=== PATIENT | male | born 1995 | race Caucasian/White ===

== ENCOUNTER 2020-09-18 19:07 | Inpatient (IN) ==
[2020-09-18] MEDS ORDERED: 0.9 % Sodium Chloride 1,000 ML IVC ONE ×2 (19:20→20:59)
[2020-09-18 19:47] LABS: Bilirubin,Urine Negative (Negative); Blood,Urine Negative (Negative); Clarity,Urine Clear (Clear); Color,Urine Yellow (Yellow); Glucose,Urine (UA) Normal (Normal); Ketones,Urine Negative (Negative); Leukocyte Esterase,Urine Negative (Negative); Mucus,Urine Few per lpf (None-Few); Nitrite,Urine Negative (Negative); PH,Urine 8.5 pH Units (5.0-8.0); Protein,Urine 100 mg/dL (Neg-Trace); RBC,Urine 0-3 per hpf (0-3); Specific Gravity,Urine 1.027 (1.010-1.025); WBC,Urine 0-3 per hpf (0-3)
[2020-09-18 19:53] LABS: Prothrombin Time 11.6 Seconds (9.4-12.1)
[2020-09-18 19:55] LABS: Basophils % 0.4 %; Eosinophils # 0.2 K/mcL (0.0-0.6); Eosinophils % 2.2 %; Hematocrit 54.4 % (37.5-50.1); Hemoglobin 18.4 g/dL (12.9-16.9); Immature Granulocytes % 0.3 % (0-4); Lymphocytes # 1.3 K/mcL (0.6-4.6); Lymphocytes % 13.1 %; Mean Corpuscular HGB Conc 33.8 g/dL (31.6-35.5); Mean Corpuscular Volume 88.7 fL (83.0-100.0); Mean Platelet Volume 12.5 fL (9.4-12.4); Monocytes # 0.6 K/mcL (0.0-1.3); Monocytes % 5.9 %; Neutrophils # 7.8 K/mcL (1.6-8.9); Platelet Count 199 K/mcL (140-400); Red Blood Count 6.13 M/mcL (4.19-5.50); Red Cell Distribution Width 12.1 % (11.5-14.5); Segmented Neutrophils % 78.1 %
[2020-09-18 19:55] LABS: Amphetamine Screen,Urine Negative ng/mL (Cutoff=1000); Barbiturate Screen,Urine Negative ng/mL (Cutoff=200); Benzodiazepines Screen,Urine Negative ng/mL (Cutoff=200); Cannabinoid Screen,Urine Negative ng/mL (Cutoff = 50); Cocaine Screen,Urine Negative ng/mL (Cutoff= 300); Opiate Screen,Urine Negative ng/mL (Cutoff=300); Phencyclidine Screen,Urine Negative ng/mL (Cutoff=25)
[2020-09-18 20:08] LABS: Acetaminophen < 10 mcg/mL (10-20); Alanine Aminotransferase 35 Units/L (7-52); Albumin/Globulin Ratio 1.7 (1.1-2.2); Alkaline Phosphatase 74 Units/L (34-104); Aspartate Amino Transferase 22 Units/L (13-39); BUN/Creatinine Ratio 10 (6-26); Bilirubin,Direct 0.1 mg/dL (0.0-0.2); Bilirubin,Indirect 0.4 mg/dL (0.0-1.0); Bilirubin,Total 0.5 mg/dL (0.3-1.0); Blood Urea Nitrogen 10 mg/dL (6-20); Calcium 10.1 mg/dL (8.6-10.3); Carbon Dioxide 26 mEq/L (23-29); Chloride 100 mEq/L (98-107); Creatine Kinase 109 Units/L (30-223); Ethanol < 10 mg/dL (Less than 10); Glucose 94 mg/dL (70-105); Lipase 22 Units/L (11-82); Magnesium 1.9 mg/dL (1.6-2.6); Osmolality,Calculated 279 (280-300); Salicylate < 2.5 mg/dL (15.0-30.0); Sodium 135 mEq/L (136-145); Troponin I < 0.03 ng/mL (< 0.04); eGFR For African Americans > 60 (> 60); eGFR For Non-African Americans > 60 (> 60)
[2020-09-18] MEDS ORDERED: Metoclopramide 10 MG/2 ML VIAL IVP ONE (20:59)
[2020-09-18] MEDS ORDERED: cefTRIAXone 2,000 MG in Water for inj. (sterile) 20 ML IVP ONE (22:16)
[2020-09-18 23:11] LABS: Appearance,CSF Clear (Clear)
[2020-09-18 23:12] LABS: Red Blood Cell,CSF < 2000 RBC/mcL
[2020-09-18 23:13] LABS: Glucose,CSF 63 mg/dL (40-70); Total Protein,CSF 54 mg/dL (15-45)
[2020-09-18 23:15] LABS: VBG HCO3 27 mEq/L (21-27); VBG PCO2 56 mmHg (41-51); VBG PH 7.29 pH Units (7.32-7.42); VBG PO2 62 mmHg (25-50)
[2020-09-19 01:16] LABS: Adenovirus Not Detected (Not Detect); Bordetella Pertussis Not Detected (Not Detect); Chlamydophila pneumoniae Not Detected (Not Detect); Coronavirus 229E Not Detected (Not Detect); Coronavirus HKU1 Not Detected (Not Detect); Coronavirus NL63 Not Detected (Not Detect); Coronavirus OC43 Not Detected (Not Detect); Human Metapneumovirus Not Detected (Not Detect); Human Rhinovirus/Enterovirus Not Detected (Not Detect); Influenza A Subtype 2009 H1 Not Detected (Not Detect); Influenza B Not Detected (Not Detect); Mycoplasma pneumoniae Not Detected (Not Detect); Parainfluenza Virus 1 Not Detected (Not Detect); Parainfluenza Virus 2 Not Detected (Not Detect); Parainfluenza Virus 3 Not Detected (Not Detect); Parainfluenza Virus 4 Not Detected (Not Detect); Respiratory Syncytial Virus Not Detected (Not Detect); SARS-CoV-2 Not Detected (Not Detect)
[2020-09-19] MEDS ORDERED: Naloxone 0.4 MG/ML INJ IVP PRN (01:27)
[2020-09-19] MEDS ORDERED: Ondansetron ODT 4 MG TAB.RAPDIS SL PRN (01:27)
[2020-09-19] MEDS ORDERED: Vancomycin 1,500 MG/265 ML IV.SOLN IVPB ONE (02:01)
[2020-09-19] MEDS: 0.9 % Sodium Chloride 1,000 ML IVC SCH ×2 (02:43→18:18)
[2020-09-19] MEDS: Acetaminophen 325 MG TABLET PO PRN ×2 (02:47→18:23)
[2020-09-19 06:52] LABS: Hematocrit 45.1 % (37.5-50.1); Mean Corpuscular HGB Conc 34.4 g/dL (31.6-35.5); Mean Corpuscular Hemoglobin 30.8 pg (28.0-33.3); Mean Corpuscular Volume 89.7 fL (83.0-100.0); Mean Platelet Volume 12.5 fL (9.4-12.4); Platelet Count 188 K/mcL (140-400); Red Blood Count 5.03 M/mcL (4.19-5.50); White Blood Count 11.9 K/mcL (4.3-11.1)
[2020-09-19 06:59] LABS: Hemoglobin 15.5 g/dL (12.9-16.9)
[2020-09-19 07:13] LABS: BUN/Creatinine Ratio 11 (6-26); Blood Urea Nitrogen 8 mg/dL (6-20); Calcium 8.9 mg/dL (8.6-10.3); Carbon Dioxide 24 mEq/L (23-29); Chloride 106 mEq/L (98-107); Glucose 88 mg/dL (70-105); Magnesium 1.6 mg/dL (1.6-2.6); Osmolality,Calculated 280 (280-300); Phosphorous 3.3 mg/dL (2.7-4.5); Potassium 3.6 mEq/L (3.5-5.1); Sodium 136 mEq/L (136-145); eGFR For African Americans > 60 (> 60); eGFR For Non-African Americans > 60 (> 60)
[2020-09-19] MEDS: cefTRIAXone 1,000 MG in 0.9 % Sodium Chloride Mini Bag 100 ML IVPB SCH (08:22)
[2020-09-19] MEDS ORDERED: Gadolinium Contrast Agent (WT Based) IV PRN (14:16)
[2020-09-20 02:51] LABS: Basophils % 0.4 %; Eosinophils # 0.2 K/mcL (0.0-0.6); Eosinophils % 2.2 %; Immature Granulocytes % 0.3 % (0-4); Lymphocytes # 1.6 K/mcL (0.6-4.6); Mean Corpuscular Hemoglobin 30.9 pg (28.0-33.3); Mean Corpuscular Volume 90.9 fL (83.0-100.0); Mean Platelet Volume 12.1 fL (9.4-12.4); Monocytes # 0.6 K/mcL (0.0-1.3); Monocytes % 8.7 %; Neutrophils # 4.4 K/mcL (1.6-8.9); Platelet Count 177 K/mcL (140-400); Red Blood Count 5.17 M/mcL (4.19-5.50); Segmented Neutrophils % 64.4 %; White Blood Count 6.8 K/mcL (4.3-11.1)
[2020-09-20] MEDS: cefTRIAXone 1,000 MG in 0.9 % Sodium Chloride Mini Bag 100 ML IVPB SCH (07:58)
[2020-09-20] MEDS ORDERED: CefTRIAXone 1,000 MG VIAL ONE (08:00)
[2020-09-20 14:06] LABS: BUN/Creatinine Ratio 12 (6-26); Blood Urea Nitrogen 10 mg/dL (6-20); eGFR For African Americans > 60 (> 60); eGFR For Non-African Americans > 60 (> 60)
[2020-09-20] MEDS: Acetaminophen 325 MG TABLET PO PRN (14:28)
[2020-09-20] MEDS: Acyclovir 700 MG in D5% in Water 100 ML IVPB SCH (17:45)
[2020-09-21] MEDS: Acyclovir 700 MG in D5% in Water 100 ML IVPB SCH ×4 (00:43→23:45)
[2020-09-21 05:46] LABS: Basophils % 0.8 %; Eosinophils # 0.2 K/mcL (0.0-0.6); Eosinophils % 4.5 %; Hematocrit 50.2 % (37.5-50.1); Hemoglobin 16.6 g/dL (12.9-16.9); Immature Granulocytes % 0.2 % (0-4); Lymphocytes % 37.1 %; Mean Corpuscular HGB Conc 33.1 g/dL (31.6-35.5); Mean Corpuscular Hemoglobin 29.6 pg (28.0-33.3); Mean Corpuscular Volume 89.6 fL (83.0-100.0); Mean Platelet Volume 12.4 fL (9.4-12.4); Monocytes # 0.6 K/mcL (0.0-1.3); Monocytes % 10.5 %; Neutrophils # 2.5 K/mcL (1.6-8.9); Platelet Count 191 K/mcL (140-400); Red Cell Distribution Width 11.9 % (11.5-14.5); Segmented Neutrophils % 46.9 %; White Blood Count 5.3 K/mcL (4.3-11.1)
[2020-09-21 06:11] LABS: Alanine Aminotransferase 19 Units/L (7-52); Albumin 4.3 g/dL (3.5-5.7); Albumin/Globulin Ratio 1.7 (1.1-2.2); Alkaline Phosphatase 62 Units/L (34-104); Aspartate Amino Transferase 11 Units/L (13-39); BUN/Creatinine Ratio 13 (6-26); Bilirubin,Total 0.5 mg/dL (0.3-1.0); Blood Urea Nitrogen 12 mg/dL (6-20); Calcium 9.3 mg/dL (8.6-10.3); Carbon Dioxide 29 mEq/L (23-29); Chloride 101 mEq/L (98-107); Globulin 2.6 g/dL (2.4-3.5); Glucose 91 mg/dL (70-105); Osmolality,Calculated 285 (280-300); Sodium 138 mEq/L (136-145); Total Protein 6.9 g/dL (6.4-8.9); eGFR For African Americans > 60 (> 60); eGFR For Non-African Americans > 60 (> 60)
[2020-09-21] MEDS: Acetaminophen 325 MG TABLET PO PRN ×3 (07:23→23:45)
[2020-09-21] MEDS ORDERED: Acetaminophen 325 MG TABLET PO ONE (21:49)
[2020-09-22] MEDS ORDERED: Ibuprofen 800 MG TABLET PO ONE (04:03)
[2020-09-22 05:02] LABS: Basophils % 0.3 %; Eosinophils # 0.1 K/mcL (0.0-0.6); Hematocrit 50.1 % (37.5-50.1); Hemoglobin 17.3 g/dL (12.9-16.9); Immature Granulocytes % 0.1 % (0-4); Lymphocytes # 1.4 K/mcL (0.6-4.6); Lymphocytes % 16.1 %; Mean Corpuscular HGB Conc 34.5 g/dL (31.6-35.5); Mean Corpuscular Hemoglobin 31.1 pg (28.0-33.3); Mean Corpuscular Volume 89.9 fL (83.0-100.0); Mean Platelet Volume 12.2 fL (9.4-12.4); Monocytes % 11.9 %; Neutrophils # 6.1 K/mcL (1.6-8.9); Platelet Count 177 K/mcL (140-400); Red Blood Count 5.57 M/mcL (4.19-5.50); Red Cell Distribution Width 11.9 % (11.5-14.5); Segmented Neutrophils % 70.6 %
[2020-09-22 05:03] LABS: White Blood Count 8.7 K/mcL (4.3-11.1)
[2020-09-22 05:33] LABS: Albumin 4.3 g/dL (3.5-5.7); Albumin/Globulin Ratio 1.5 (1.1-2.2); Bilirubin,Total 0.9 mg/dL (0.3-1.0); Calcium 9.5 mg/dL (8.6-10.3); Globulin 2.9 g/dL (2.4-3.5); Potassium 4.1 mEq/L (3.5-5.1); Total Protein 7.2 g/dL (6.4-8.9)
[2020-09-22] MEDS: Acyclovir 700 MG in D5% in Water 100 ML IVPB SCH ×2 (07:42→19:33)
[2020-09-22] MEDS ORDERED: 0.9 % Sodium Chloride 1,000 ML IVC SCH (10:00)
[2020-09-22] MEDS: 0.9 % Sodium Chloride 1,000 ML IVC SCH ×3 (10:05→23:56)
[2020-09-22] MEDS: Acetaminophen 325 MG TABLET PO PRN ×3 (10:12→22:38)
[2020-09-23 02:13] LABS: Magnesium 1.7 mg/dL (1.6-2.6); Phosphorous 2.8 mg/dL (2.7-4.5)
[2020-09-23 02:14] LABS: Albumin 3.9 g/dL (3.5-5.7); Albumin/Globulin Ratio 1.5 (1.1-2.2); Bilirubin,Total 1.1 mg/dL (0.3-1.0); Calcium 8.7 mg/dL (8.6-10.3); Globulin 2.6 g/dL (2.4-3.5); Potassium 3.6 mEq/L (3.5-5.1); Total Protein 6.5 g/dL (6.4-8.9)
[2020-09-23 02:39] LABS: Basophils % 0.3 %; Eosinophils # 0.2 K/mcL (0.0-0.6); Eosinophils % 2.1 %; Hematocrit 46.7 % (37.5-50.1); Immature Granulocytes % 0.2 % (0-4); Lymphocytes # 1.6 K/mcL (0.6-4.6); Mean Corpuscular HGB Conc 33.4 g/dL (31.6-35.5); Mean Corpuscular Hemoglobin 29.8 pg (28.0-33.3); Mean Corpuscular Volume 89.3 fL (83.0-100.0); Mean Platelet Volume 12.4 fL (9.4-12.4); Monocytes # 0.9 K/mcL (0.0-1.3); Monocytes % 10.6 %; Platelet Count 168 K/mcL (140-400); Red Blood Count 5.23 M/mcL (4.19-5.50); Red Cell Distribution Width 11.9 % (11.5-14.5); Segmented Neutrophils % 68.8 %; White Blood Count 8.7 K/mcL (4.3-11.1)
[2020-09-23 02:43] LABS: Hemoglobin 15.6 g/dL (12.9-16.9)
[2020-09-23] MEDS ORDERED: 0.9 % Sodium Chloride 250 ML IVC ONE (07:42)
[2020-09-23] MEDS ORDERED: Ondansetron 4 MG/2 ML VIAL IVP PRN (07:45)
[2020-09-23] MEDS: 0.9 % Sodium Chloride 1,000 ML IVC SCH ×3 (08:24→20:34)
[2020-09-23] MEDS: Acyclovir 700 MG in D5% in Water 100 ML IVPB SCH (09:24)
[2020-09-23 11:57] LABS: BUN/Creatinine Ratio 7 (6-26); Blood Urea Nitrogen 12 mg/dL (6-20); Calcium 8.8 mg/dL (8.6-10.3); Carbon Dioxide 28 mEq/L (23-29); Chloride 106 mEq/L (98-107); Glucose 96 mg/dL (70-105); Osmolality,Calculated 288 (280-300); Potassium 4.2 mEq/L (3.5-5.1); Sodium 139 mEq/L (136-145); eGFR For African Americans > 60 (> 60); eGFR For Non-African Americans 52 (> 60)
[2020-09-23] MEDS: levETIRAcetam 250 MG TABLET PO SCH (16:46)
[2020-09-24] MEDS: 0.9 % Sodium Chloride 1,000 ML IVC SCH ×2 (00:31→06:20)
[2020-09-24 05:04] LABS: Alanine Aminotransferase 14 Units/L (7-52); Albumin 3.5 g/dL (3.5-5.7); Albumin/Globulin Ratio 1.5 (1.1-2.2); Alkaline Phosphatase 48 Units/L (34-104); Aspartate Amino Transferase 26 Units/L (13-39); BUN/Creatinine Ratio 7 (6-26); Bilirubin,Total 0.7 mg/dL (0.3-1.0); Blood Urea Nitrogen 9 mg/dL (6-20); Calcium 8.5 mg/dL (8.6-10.3); Carbon Dioxide 26 mEq/L (23-29); Chloride 106 mEq/L (98-107); Globulin 2.4 g/dL (2.4-3.5); Glucose 88 mg/dL (70-105); Magnesium 1.7 mg/dL (1.6-2.6); Osmolality,Calculated 286 (280-300); Phosphorous 2.9 mg/dL (2.7-4.5); Potassium 3.7 mEq/L (3.5-5.1); Sodium 139 mEq/L (136-145); Total Protein 5.9 g/dL (6.4-8.9); eGFR For African Americans > 60 (> 60); eGFR For Non-African Americans > 60 (> 60)
[2020-09-24] MEDS: levETIRAcetam 250 MG TABLET PO SCH (05:25)
[2020-09-24 07:13] VITALS: BP 113/75
[2020-09-27 02:45] LABS: HSV Source NOT PROVIDED
== END 2020-09-24 11:24 | disposition home or self-care (01) | DRG 75 ==
LOC: EMEROOARM 19:07 → 3BNU 19:07 → SUATTDRO 09-19 01:22 → 3BNU 09-19 01:36
PROVIDERS: ADMIT Student in an Organized Health Care Education/Training Program; ATTEND Internal Medicine

== ENCOUNTER 2021-02-08 21:29 | Observation (INO) ==
[2021-02-08 22:26] LABS: Bilirubin,Urine Negative (Negative); Blood,Urine Negative (Negative); Clarity,Urine Clear (Clear); Color,Urine Light-Yellow (Yellow); Glucose,Urine (UA) Normal (Normal); Ketones,Urine Negative (Negative); Leukocyte Esterase,Urine Negative (Negative); Nitrite,Urine Negative (Negative); PH,Urine 6.5 pH Units (5.0-8.0); Protein,Urine Negative (Neg-Trace); Specific Gravity,Urine 1.024 (1.010-1.025); Urobilinogen,Urine Normal (Normal)
[2021-02-08 22:32] LABS: Basophils # 0.1 K/mcL (0.0-0.2); Basophils % 0.3 %; Eosinophils # 0.6 K/mcL (0.0-0.6); Eosinophils % 3.4 %; Hematocrit 49.6 % (37.5-50.1); Hemoglobin 16.5 g/dL (12.9-16.9); Immature Granulocytes % 0.4 % (0-4); Lymphocytes # 1.5 K/mcL (0.6-4.6); Mean Corpuscular HGB Conc 33.3 g/dL (31.6-35.5); Mean Corpuscular Hemoglobin 30.7 pg (28.0-33.3); Mean Corpuscular Volume 92.4 fL (83.0-100.0); Mean Platelet Volume 12.7 fL (9.4-12.4); Monocytes # 1.1 K/mcL (0.0-1.3); Monocytes % 6.5 %; Neutrophils # 13.6 K/mcL (1.6-8.9); Platelet Count 195 K/mcL (140-400); Red Blood Count 5.37 M/mcL (4.19-5.50); Segmented Neutrophils % 80.4 %; White Blood Count 16.9 K/mcL (4.3-11.1)
[2021-02-08 22:54] LABS: Alanine Aminotransferase 30 Units/L (7-52); Albumin 4.7 g/dL (3.5-5.7); Albumin/Globulin Ratio 1.9 (1.1-2.2); Alkaline Phosphatase 64 Units/L (34-104); Aspartate Amino Transferase 21 Units/L (13-39); BUN/Creatinine Ratio 17 (6-26); Bilirubin,Direct 0.1 mg/dL (0.0-0.2); Bilirubin,Indirect 0.2 mg/dL (0.0-1.0); Bilirubin,Total 0.3 mg/dL (0.3-1.0); Blood Urea Nitrogen 18 mg/dL (6-20); Calcium 9.6 mg/dL (8.6-10.3); Carbon Dioxide 31 mEq/L (23-29); Chloride 102 mEq/L (98-107); Globulin 2.5 g/dL (2.4-3.5); Glucose 100 mg/dL (70-105); Lipase 30 Units/L (11-82); Osmolality,Calculated 288 (280-300); Potassium 3.9 mEq/L (3.5-5.1); Sodium 138 mEq/L (136-145); Total Protein 7.2 g/dL (6.4-8.9); eGFR For African Americans > 60 (> 60); eGFR For Non-African Americans > 60 (> 60)
[2021-02-08] MEDS ORDERED: *HR* FentaNYL (PF) 100 MCG/2 ML VIAL IVP ONE (23:08)
[2021-02-08] MEDS ORDERED: Ondansetron 4 MG/2 ML VIAL IVP ONE (23:08)
[2021-02-08] MEDS ORDERED: Isovue-370 500 ML BOTTLE IVP ONE (23:08)
[2021-02-09] MEDS ORDERED: Piperacillin/Tazobactam 3.375 GM in Water for inj. (sterile) 20 ML IVP ONE (00:15)
[2021-02-09] MEDS ORDERED: 0.9 % Sodium Chloride 1,000 ML IVC ONE (00:19)
[2021-02-09] MEDS ORDERED: 0.9 % Sodium Chloride 1,000 ML IVC SCH (04:00)
[2021-02-09] MEDS ORDERED: Piperacillin/Tazobactam 3.375 GM in 0.9 % Sodium Chloride Mini Bag 100 ML IVPB SCH (08:00)
[2021-02-09 08:18] LABS: Adenovirus Not Detected (Not Detect); Bordetella Pertussis Not Detected (Not Detect); Chlamydophila pneumoniae Not Detected (Not Detect); Coronavirus 229E Not Detected (Not Detect); Coronavirus HKU1 Not Detected (Not Detect); Coronavirus NL63 Not Detected (Not Detect); Coronavirus OC43 Not Detected (Not Detect); Human Metapneumovirus Not Detected (Not Detect); Human Rhinovirus/Enterovirus Not Detected (Not Detect); Influenza A Subtype 2009 H1 Not Detected (Not Detect); Influenza B Not Detected (Not Detect); Mycoplasma pneumoniae Not Detected (Not Detect); Parainfluenza Virus 1 Not Detected (Not Detect); Parainfluenza Virus 2 Not Detected (Not Detect); Parainfluenza Virus 3 Not Detected (Not Detect); Parainfluenza Virus 4 Not Detected (Not Detect); Respiratory Syncytial Virus Not Detected (Not Detect); SARS-CoV-2 Not Detected (Not Detect)
[2021-02-09] MEDS: Ondansetron 4 MG/2 ML VIAL IVP PRN ×2 (08:31→14:11)
[2021-02-09] MEDS ORDERED: Lidocaine HCL 4 ML Topical Solution (Laryng-O-Jet Kit Sterile Pak) TP ONE (09:28)
[2021-02-09] MEDS ORDERED: Ondansetron 4 MG/2 ML VIAL ONE (09:28)
[2021-02-09] MEDS ORDERED: *HR* Rocuronium Bromide 50 MG/5 ML VIAL ONE (09:28)
[2021-02-09] MEDS ORDERED: *HR* Succinylcholine 200 MG/10 ML VIAL IVP ONE (09:28)
[2021-02-09] MEDS ORDERED: Lidocaine -MPF 2% 2 ML VIAL ONE (09:28)
[2021-02-09] MEDS ORDERED: *HR* FentaNYL (PF) 100 MCG/2 ML VIAL ONE (09:30)
[2021-02-09] MEDS ORDERED: *HR* Midazolam HCl 2 MG/2 ML VIAL ONE (09:30)
[2021-02-09] MEDS ORDERED: *HR* Propofol 200 MG/20 ML VIAL IVP ONE (09:30)
[2021-02-09] MEDS ORDERED: *HR* HYDROmorphone PF 0.5 MG/0.5 ML SYRINGE IVP PRN (10:07)
[2021-02-09] MEDS ORDERED: Ketorolac 30 MG/ML VIAL ONE (12:30)
[2021-02-09] MEDS ORDERED: Acetaminophen IV 1,000 MG/100 ML BAG IVPB ONE (12:47)
[2021-02-09] MEDS ORDERED: *HR* HYDROMORPHONE 2 MG/ML VIAL ONE (13:24)
[2021-02-09] MEDS ORDERED: Ondansetron 4 MG/2 ML VIAL IVP PRN (14:42)
[2021-02-09] MEDS: 0.9 % Sodium Chloride 1,000 ML IVC SCH (15:25)
[2021-02-09] MEDS: Piperacillin/Tazobactam 3.375 GM in 0.9 % Sodium Chloride Mini Bag 100 ML IVPB SCH (15:26)
[2021-02-09] MEDS: Metoclopramide 20 MG in 0.9 % Sodium Chloride 50 ML IVPB SCH (16:15)
[2021-02-09] MEDS ORDERED: Scopolamine Patch 1.5 MG PATCH.TD72 TD SCH (17:15)
[2021-02-09] MEDS: Acetaminophen IV 1,000 MG/100 ML BAG IVPB SCH (18:09)
[2021-02-09] MEDS: Ketorolac 15 MG/ML VIAL IVP SCH (18:09)
[2021-02-10] MEDS: Metoclopramide 20 MG in 0.9 % Sodium Chloride 50 ML IVPB SCH (00:35)
[2021-02-10] MEDS: Ketorolac 15 MG/ML VIAL IVP SCH ×2 (00:36→05:01)
[2021-02-10] MEDS: Acetaminophen IV 1,000 MG/100 ML BAG IVPB SCH ×2 (00:36→05:02)
[2021-02-10] MEDS: Piperacillin/Tazobactam 3.375 GM in 0.9 % Sodium Chloride Mini Bag 100 ML IVPB SCH (00:37)
[2021-02-10] MEDS: 0.9 % Sodium Chloride 1,000 ML IVC SCH (05:00)
[2021-02-10 07:10] VITALS: BP 120/62
== END 2021-02-10 10:35 | disposition home or self-care (01) ==
LOC: 3ANU 21:29 → EMEROOARM 21:29 → 3ANU 02-09 01:10
PROVIDERS: ADMIT Surgery; ATTEND Surgery